=== PATIENT | male | born 1960 | race Caucasian/White ===

== ENCOUNTER 2019-04-06 09:33 | Emergency (ER) | payer OTHER ==
--- OUTSIDE RECORDS SUMMARY | 2019-04-06 09:36 | XMS REPORT ---
:1960 [facility] Address [address] [place] [address] Dr. López [address] [place] [id number] Care Team Providers Name Role Phone Unavailable Unavailable Unavailable Problems This patient has no known problems. Allergies, Adverse Reactions, Alerts This patient has no known allergies or adverse reactions. Medications This patient has no known medications.
[2019-04-06 10:15] LABS: Absolute Lymphocytes (CBC) 92.5 K/uL (0.7-4.9); Basophils % 0.5 % (0-1.3); Hematocrit 37.9 % (39.6-49.0); Lymphocytes % 94.7 % (15.3-44.8); MPV 8.8 fL (7.6-11.3); RBC Red Blood Cell Count 4.34 M/uL (4.33-5.43)
[2019-04-06 10:46] LABS: Albumin 3.9 g/dL (3.4-5.0); Potassium 4.6 mmol/L (3.5-5.1); Protein, Total 6.3 g/dL (6.4-8.2)
--- NOTE | 2019-04-06 11:25 | EDPHYS ---
Physician Documentation [facility] Name: Greg Canchola Age: 58 yrs Sex: Male : 1960 Arrival Date: 04/06/2019 Time: 09:36 Bed 8 Private MD: Meenakshi Snyder ED Physician Grover Bolanos HPI: 04/06 11:22 This 58 yrs old Male presents to ER via Ambulatory with complaints of ma2 Abnormal Lab Results. 11:22 Onset: The symptoms/episode began/occurred gradually, 1 year(s) ago. Severity of ma2 symptoms: At their worst the symptoms were very mild in the emergency department the symptoms are unchanged. The patient has not experienced similar symptoms in the past. [place] [id number], he has no symptoms, i discussed with dr. modi, oncologist, she advised for outpatient workup no need for admission . Historical: - Allergies: 10:00 Codeine; ss - PMHx: 10:00 lymphoma; Leukemia; ss - PSHx: 10:00 Neck surgery; ss - Immunization history:: Adult Immunizations up to date. - Social history:: Smoking status: Patient uses tobacco products, smokes one-half pack cigarettes per day, Patient uses alcohol, only on a social basis. reportedly used to be a heavy drinker daily. Patient/guardian denies using alcohol, street drugs, The patient lives alone. - Ebola Screening: : Patient denies exposure to infectious person Patient denies travel to an Ebola-affected area in the 21 days before illness onset. - Family history:: not pertinent. ROS: 11:22 Constitutional: Negative for fever, chills, and weight loss. ma2 11:22 All other systems are negative. Exam: 11:22 Constitutional: This is a well developed, well nourished patient who is awake, alert, ma2 and in no acute distress. Head/Face: Normocephalic, atraumatic. Neck: Trachea midline, no thyromegaly or masses palpated, and no cervical lymphadenopathy. Supple, full range of motion without nuchal rigidity, or vertebral point tenderness. No Meningismus. Chest/axilla: Normal chest wall appearance and motion. Nontender with no deformity. No lesions are appreciated. Cardiovascular: Regular rate and rhythm with a normal S1 and S2. No gallops, murmurs, or rubs. Normal PMI, no JVD. No pulse deficits. Respiratory: Lungs have equal breath sounds bilaterally, clear to auscultation and percussion. No rales, rhonchi or wheezes noted. No increased work of breathing, no retractions or nasal flaring. Abdomen/GI: Soft, non-tender, with normal bowel sounds. No distension or tympany. No guarding or rebound. No evidence of tenderness throughout. Back: No spinal tenderness. No costovertebral tenderness. Full range of motion. Skin: Warm, dry with normal turgor. Normal color with no rashes, no lesions, and no evidence of cellulitis. MS/ Extremity: Pulses equal, no cyanosis. Neurovascular intact. Full, normal range of motion. Neuro: Awake and alert, GCS 15, oriented to person, place, time, and situation. Cranial nerves II-XII grossly intact. Motor strength 5/5 in all extremities. Sensory grossly intact. Cerebellar exam normal. Normal gait. Vital Signs: 09:57 BP 169 / 87; Pulse 73; Resp 18; Temp 97.5(O); Pulse Ox 100% on R/A; Weight 78.02 kg; ss Height 6 ft. 2 in. (187.96 cm); Pain 4/10; 10:13 BP 138 / 84; Pulse 67; Resp 16 S; Pulse Ox 97% on R/A; jl7 09:57 Body Mass Index 22.08 (78.02 kg, 187.96 cm) ss MDM: 09:46 Patient medically screened. ma2 11:22 Differential Diagnosis CLL, lymphoma, LCL. Data reviewed: vital signs, nurses notes. ma2 Counseling: I had a detailed discussion with the patient and/or guardian regarding: the historical points, exam findings, and any diagnostic results supporting the discharge/admit diagnosis, the presence of at least one elevated blood pressure reading (>120/80) during this emergency department visit. Counseling: I had a detailed discussion with the patient and/or guardian regarding: the need for outpatient follow up. 04/06 09:57 Order name: CBC with Diff ma2 04/06 09:57 Order name: BMP ma2 04/06 09:57 Order name: CMP ma2 04/06 10:30 Order name: CBC with Automated Diff EDMS 04/06 10:47 Order name: Comprehensive Metabolic Panel; Complete Time: 11:02 EDMS Administered Medications: No medications were administered Disposition: 04/06/19 11:25 Discharged to Home. Impression: Chronic lymphocytic leukemia of B-cell type. - Condition is Stable. - Medication Reconciliation Form, Thank You Letter, Antibiotic Education, Prescription Opioid Use form. - Follow up: Rosalee Padgett MD; When: Tomorrow; Reason: Continuance of care. Signatures: Dispatcher [employer] EDID Karla Crodon RN RN ss Lucita Sierra RN RN jl7 Grover Bolanos MD MD ma2 Corrections: (The following items were deleted from the chart) 11:45 11:25 04/06/2019 11:25 Discharged to Home. Impression: Chronic lymphocytic leukemia of jl7 B-cell type. Condition is Stable. Forms are Medication Reconciliation Form, Thank You Letter, Antibiotic Education, Prescription Opioid Use. Follow up: Rosalee Nash; When: Tomorrow; Reason: Continuance of care. ma2
--- NOTE | 2019-04-06 11:25 | ER ---
Nurse's Notes [facility] Name: Greg Canchola Age: 58 yrs Sex: Male : 1960 Arrival Date: 04/06/2019 Time: 09:36 Bed 8 Private MD: Meenakshi Snyder Diagnosis: Chronic lymphocytic leukemia of B-cell type Presentation: 04/06 10:00 Presenting complaint: Patient states: Sent over for high WBC count. Had labs drawn ss Saturday, and was told to come to ER immediately today because his WBC count was 9. Pt reports he had labs drawn to try to become an established patient of Dr. Loco. Transition of care: patient was not received from another setting of care. Onset of symptoms is unknown. Risk Assessment: Do you want to hurt yourself or someone else? Patient reports no desire to harm self or others. Initial Sepsis Screen: Does the patient meet any 2 criteria? No. Patient's initial sepsis screen is negative. Does the patient have a suspected source of infection? No. Patient's initial sepsis screen is negative. Care prior to arrival: None. 10:00 Method Of Arrival: Ambulatory ss 10:00 Acuity: YAKOV 3 ss Historical: - Allergies: 10:00 Codeine; ss - PMHx: 10:00 lymphoma; Leukemia; ss - PSHx: 10:00 Neck surgery; ss - Immunization history:: Adult Immunizations up to date. - Social history:: Smoking status: Patient uses tobacco products, smokes one-half pack cigarettes per day, Patient uses alcohol, only on a social basis. reportedly used to be a heavy drinker daily. Patient/guardian denies using alcohol, street drugs, The patient lives alone. - Ebola Screening: : Patient denies exposure to infectious person Patient denies travel to an Ebola-affected area in the 21 days before illness onset. - Family history:: not pertinent. Screenin:13 Abuse screen: Denies threats or abuse. Denies injuries from another. Nutritional jl7 screening: No deficits noted. Tuberculosis screening: No symptoms or risk factors identified. Fall Risk IV access (20 points). Total Sinclair Fall Scale indicates No Risk (0-24 pts). Assessment: 09:55 General: Appears in no apparent distress. uncomfortable, Behavior is calm, cooperative, jl7 appropriate for age. Pain: Complains of pain in abdomen diffusely Pain currently is 6 out of 10 on a pain scale. Neuro: Level of Consciousness is awake, alert, obeys commands, Oriented to person, place, time, situation. Cardiovascular: Patient's skin is warm and dry. Respiratory: Airway is patent Respiratory effort is even, unlabored. GI: Abdomen is round Abdomen is tender to palpation. Derm: Skin is pink, warm \T\ dry. 10:01 Reassessment: Attempted to call office of Beverley Snyder NP to obtain copy of lab ss results. Left VM. Will try to call back in a few moments. 10:20 Reassessment: Spoke with office staff at [facility] office who states she will have ss the nurse call MISAEL. Vital Signs: 09:57 BP 169 / 87; Pulse 73; Resp 18; Temp 97.5(O); Pulse Ox 100% on R/A; Weight 78.02 kg; ss Height 6 ft. 2 in. (187.96 cm); Pain 4/10; 10:13 BP 138 / 84; Pulse 67; Resp 16 S; Pulse Ox 97% on R/A; jl7 09:57 Body Mass Index 22.08 (78.02 kg, 187.96 cm) ED Course: 09:36 Patient arrived in ED. mr 09:38 Meenakshi Snyder is Private Physician. mr 09:44 Lucita Sierra, RN is Primary Nurse. jl7 09:46 Grover Bolanos MD is Attending Physician. ma2 09:57 Arm band placed on right wrist. ss 10:01 Triage completed. ss 10:13 Patient has correct armband on for positive identification. Bed in low position. Call jl7 light in reach. Side rails up X 1. Pulse ox on. NIBP on. 10:13 Initial lab(s) drawn, by me, sent to lab. Inserted saline lock: 22 gauge in right jl7 forearm, using aseptic technique. Blood collected. 10:24 CMP Sent. jl7 10:24 BMP Sent. jl7 10:24 CBC with Diff Sent. jl7 11:24 Rosalee Padgett MD is Referral Physician. ma2 11:44 No provider procedures requiring assistance completed. IV discontinued, intact, jl7 bleeding controlled, No redness/swelling at site. Pressure dressing applied. Administered Medications: No medications were administered Outcome: : Discharge ordered by . javon :45 Discharged to home ambulatory. [email or web address] :45 Condition: stable :45 Discharge instructions given to patient, Instructed on discharge instructions, follow up and referral plans. Demonstrated understanding of instructions, follow-up care. :45 Patient left the ED. [email or web address] Signatures: Lisa Sepulveda mr Karla Cordon RN RN Lucita Sierra RN RN jl7 Grover Bolanos MD MD ma2
[2019-04-06 11:56] VITALS: TEMP 97.5
[2019-04-06 11:58] VITALS: BP 138/84; O2SAT 97
[2019-04-06 12:25] LABS: Blood Morphology Comment NOT SEEN (NOT SEEN); Platelet Estimate DECR
== END 2019-04-06 11:45 | disposition home or self-care (01) ==
LOC: ER 09:33
DX: C91.10 Chronic lymphocytic leukemia of B-cell type not having achieved remission (principal); F17.210 Nicotine dependence, cigarettes, uncomplicated; Z88.5 Allergy status to narcotic agent
CPT/HCPCS: 36415; 80053; 85025; 99283

== ENCOUNTER 2019-06-12 07:59 | Day surgery (SDC) | payer OTHER ==
--- OUTSIDE RECORDS SUMMARY | 2019-06-12 08:12 | XMS REPORT ---
:1960 Author Organization [employer] Care Team Providers Name Role Phone Meenakshi Snyder Provider Role Unavailable Allergies, Adverse Reactions, Alerts Substance Reaction Event Type N.K.D.A. Info Not Available Non Drug Allergy Problems Problem Type Condition Code Onset Dates Condition Status Assessment Essential hypertension I10 Active Assessment Pulmonary emphysema, unspecified J43.9 Active emphysema type Problem Pulmonary emphysema, unspecified J43.9 Active emphysema type Problem Generalized abdominal pain R10.84 Active Problem Essential hypertension I10 Active Assessment Generalized abdominal pain R10.84 Active Assessment Leukemia, chronic lymphocytic C91.10 Active Problem Leukemia, chronic lymphocytic C91.10 Active Medications Medication Code System Code Instructions Start End Date Status Dosage Date ProAir HFA [facility] 12147077886 108 (90 Base) Apr 01, Active 2 puffs as MCG/ACT 2019 needed Inhalation every 6 hrs Lisinopril [facility] [id number] 10 MG Orally Once Apr 01, Active 1 tablet a day 2019 Results No Known Results Summary Purpose [employer] Submission
--- OUTSIDE RECORDS SUMMARY | 2019-06-12 08:12 | XMS REPORT ---
:1960 Author Organization [employer] Care Team Providers Name Role Phone Meenakshi Snyder Provider Role Unavailable Allergies No Known Allergies Problems Problem Type Condition Code Onset Dates Condition Status Problem Pulmonary emphysema, unspecified J43.9 Active emphysema type Problem Generalized abdominal pain R10.84 Active Problem Essential hypertension I10 Active Problem Leukemia, chronic lymphocytic C91.10 Active Medications No Known Medications Results No Known Results Summary Purpose [place] Submission
--- OUTSIDE RECORDS SUMMARY | 2019-06-12 08:12 | XMS REPORT ---
[...] Medications Results No Known Results Summary Purpose [place] Submission
--- OUTSIDE RECORDS SUMMARY | 2019-06-12 08:12 | XMS REPORT ---
:1960 [facility] Address [address] [place] [address] Dr. López [address] [place] [id number] Care Team Providers Name Role Phone Unavailable Unavailable Unavailable Problems This patient has no known problems. Allergies, Adverse Reactions, Alerts This patient has no known allergies or adverse reactions. Medications This patient has no known medications.
[2019-06-12] MEDS ORDERED: NA CHLORIDE 0.9% 250 ML ONE ×2 (08:19→08:21)
[2019-06-12] MEDS ORDERED: NA CHLORIDE 0.9% 500 ML ONE (10:46)
[2019-06-12 14:26] VITALS: BP 137/68; TEMP 98.4; O2SAT 100; BMI 20.9
[2019-06-12 15:25] LABS: Hematocrit 25.3 % (39.6-49.0)
== END 2019-06-12 15:22 | disposition home or self-care (01) ==
LOC: DS 07:59
PROVIDERS: ATTEND Internal Medicine Hematology & Oncology
DX: D63.0 Anemia in neoplastic disease (principal); C83.08 Small cell B-cell lymphoma, lymph nodes of multiple sites
CPT/HCPCS: 36415; 86900; 86850; 86901; 85018; 85014; 36430; P9016 ×2; J7030 ×2; J7040

== ENCOUNTER 2021-02-07 13:52 | Inpatient (IN) | payer BC, OTHER ==
[2021-02-07] MEDS ORDERED: HYDROMORPHONE HCL 1 MG/ML INJ ONE ×3 (15:07→23:31)
[2021-02-07] MEDS ORDERED: NA CHLORIDE 0.9% 1,000 ML ONE ×2 (15:07→19:41)
[2021-02-07] MEDS ORDERED: PROMETHAZINE INJ 25 MG/ML AMP ONE (15:07)
[2021-02-07 15:11] LABS: Basophils % 0.8 % (0-1.3); Hematocrit 44.3 % (39.6-49.0); Lymphocytes % 88.6 % (15.3-44.8); RBC Red Blood Cell Count 5.25 M/uL (4.33-5.43)
[2021-02-07 15:32] LABS: Albumin 4.5 g/dL (3.4-5.0); Bilirubin Direct 0.3 mg/dL (0-0.2); Bilirubin Total 1.1 mg/dL (0.2-1.0); Protein, Total 7.3 g/dL (6.4-8.2)
[2021-02-07 15:36] LABS: Potassium 6.8 mmol/L (3.5-5.1)
[2021-02-07 16:04] LABS: Blood Morphology Comment NOT SEEN (NOT SEEN); Platelet Estimate ADEQ; Smudge Cells 4+
--- NOTE | 2021-02-07 16:35 | RAD REPORT ---
EXAM DESCRIPTION: CT - Abdomen Pelvis W Contrast - 02/07/2021 4:03 pm CLINICAL HISTORY: Abdominal pain COMPARISON: 2019 TECHNIQUE: Computed axial tomography of the abdomen pelvis was obtained. 100 cc Isovue-300 was admin istered intravenously. All CT scans are performed using dose optimization technique as appropriate and may include automated exposure control or mA/KV adjustment according to patient size. FINDINGS: Multiple hepatic lesions. Many have developed since the prior exam. Some have enlarged. Eliseo th lobes are involved. Largest lesion lies within the posterior segment right lower lobe 3.7 centimet ers. Spleen measures 19 centimeters. 2.4 centimeter low to intermediate density lesion unchanged. Pancreas, adrenals and kidneys unremarkable. 4.3 centimeter upper rectal mass. The entire proximal colon is dilated. Transverse colon measures 6.7 centimeters. The right colon measures 7.3 centimeters. There is massive abdominal lymphadenopathy. Retrocrural lymph node measures 2.5 centimeters. Mantle o f lymph nodes within the central upper abdomen measures 12 x 8 centimeters. Mantle lymph nodes within the mid central abdomen measures 18 x 10 centimeters. Mantle of lymph nodes within the lower central abdomen measure 11 x 7 centimeters. Several enlarged lymph nodes along the iliac chains bilaterally. Largest measures 3.6 centimeters. Several perirectal lymph nodes. Stomach and duodenum are compresse d by the lymphadenopathy. IMPRESSION: 4.3 centimeter rectal mass results in a colonic obstruction Multiple hepatic lesions likely metastases Massive abdominal lymphadenopathy. Several enlarged lymph nodes within the pelvis
--- NOTE | 2021-02-07 17:07 | EDPHYS ---
Physician Documentation [facility] Name: Greg Canchola Age: 60 yrs Sex: Male : 1960 Arrival Date: 02/07/2021 Time: 13:54 Bed 24 Private MD: Rosalee Padgett ED Physician Grover Bolanos HPI: 02/07 14:49 This 60 yrs old Male presents to ER via Wheelchair with complaints of ma2 Abdominal Swelling, Constipation, Urinary Retention. 14:49 The patient presents with abdominal pain. Associated signs and symptoms: Pertinent ma2 negatives: blood in stools, constipation, fever, headache, vomiting, vomiting blood. Severity of pain: At its worst the pain was moderate in the emergency department the pain is unchanged. The patient has experienced similar episodes in the past. has colon cancer on comfort palliative care . Historical: - Allergies: 14:06 Codeine; vg1 - Home Meds: 14:06 None [Active]; vg1 - PMHx: 14:06 Leukemia; LYMPHOMA; vg1 - Immunization history:: Adult Immunizations up to date, Client reports having NOT received the Covid vaccine. - Social history:: Smoking status: Patient reports the use of cigarette tobacco products, smokes one-half pack cigarettes per day. - Family history:: not pertinent. ROS: 14:49 Constitutional: Negative for fever, chills, and weight loss. ma2 14:49 All other systems are negative. Exam: 14:49 Constitutional: This is a well developed, well nourished patient who is awake, alert, ma2 and in no acute distress. Head/Face: Normocephalic, atraumatic. Eyes: Pupils equal round and reactive to light, extra-ocular motions intact. Lids and lashes normal. Conjunctiva and sclera are non-icteric and not injected. Cornea within normal limits. Periorbital areas with no swelling, redness, or edema. ENT: Nares patent. No nasal discharge, no septal abnormalities noted. Tympanic membranes are normal and external auditory canals are clear. Oropharynx with no redness, swelling, or masses, exudates, or evidence of obstruction, uvula midline. Mucous membranes moist. Neck: Trachea midline, no thyromegaly or masses palpated, and no cervical lymphadenopathy. Supple, full range of motion without nuchal rigidity, or vertebral point tenderness. No Meningismus. Chest/axilla: Normal chest wall appearance and motion. Nontender with no deformity. No lesions are appreciated. Cardiovascular: Regular rate and rhythm with a normal S1 and S2. No gallops, murmurs, or rubs. Normal PMI, no JVD. No pulse deficits. Respiratory: Lungs have equal breath sounds bilaterally, clear to auscultation and percussion. No rales, rhonchi or wheezes noted. No increased work of breathing, no retractions or nasal flaring. Skin: Warm, dry with normal turgor. Normal color with no rashes, no lesions, and no evidence of cellulitis. MS/ Extremity: Pulses equal, no cyanosis. Neurovascular intact. Full, normal range of motion. Neuro: Awake and alert, GCS 15, oriented to person, place, time, and situation. Cranial nerves II-XII grossly intact. Motor strength 5/5 in all extremities. Sensory grossly intact. Cerebellar exam normal. Normal gait. 14:49 Abdomen/GI: Inspection: distension, Bowel sounds: high pitched, Palpation: nontender, Liver: is enlarged, Hernia: not appreciated. Vital Signs: 14:03 BP 152 / 103; Pulse 98; Resp 20; Temp 97.8; Pulse Ox 96% ; Weight 61.23 kg; Height 6 vg1 ft. 0 in. (182.88 cm); Pain 10/10; 14:28 BP 158 / 106; Pulse 97; Resp 18; Pulse Ox 100% on R/A; Pain 10/10; ld1 19:20 BP 151 / 81; Pulse 87; Resp 18; Temp 98.0; Pulse Ox 100% ; Pain 0/10; dc2 20:30 BP 166 / 89; Pulse 79; Resp 18; Temp 98.0; Pulse Ox 100% ; Pain 0/10; dc2 21:30 BP 146 / 96; Pulse 84; Resp 18; Pulse Ox 100% ; Pain 2/10; dc2 22:00 BP 173 / 91; Pulse 85; Resp 18; Pulse Ox 99% ; Pain 2/10; dc2 23:00 BP 168 / 100; Pulse 85; Resp 20; Pulse Ox 100% ; Pain 10/10; dc2 10 00:00 BP 167 / 104; Pulse 85; Resp 20; Temp 97.2; Pulse Ox 99% ; Pain 8/10; dc2 02/07 14:03 Body Mass Index 18.31 (61.23 kg, 182.88 cm) vg1 MDM: 02/07 14:33 Patient medically screened. sc2 14:49 Differential diagnosis: gastritis, gastroesophageal reflux disease, pancreatitis, ma2 urinary tract infection. 17:05 Data reviewed: vital signs, nurses notes. Counseling: I had a detailed discussion with ma2 the patient and/or guardian regarding: the historical points, exam findings, and any diagnostic results supporting the discharge/admit diagnosis, the presence of at least one elevated blood pressure reading (>120/80) during this emergency department visit, the need for outpatient follow up. Response to treatment: the patient's symptoms have markedly improved after treatment. ED course: patient has terminal colon cancer, lymphoma with wbc of 100K, he also havs hyperkalemia and severe dehydraiton, he would like to be admitted for hydration and potassium correction . 02/07 14:27 Order name: Basic Metabolic Panel; Complete Time: 15:41 [facility] 02/07 14:27 Order name: CBC with Diff; Complete Time: 16:34 [facility] 02/07 14:27 Order name: Hepatic Function; Complete Time: 15:41 [facility] 02/07 14:27 Order name: Lipase; Complete Time: 15:41 [facility] 02/07 16:04 Order name: Manual Differential; Complete Time: 16:34 [facility] 02/07 19:05 Order name: Potassium ej 02/07 14:35 Order name: CT Abd/Pelvis - IV Contrast Only [facility] 02/07 19:18 Order name: Urine Dipstick-Ancillary [facility] 02/07 19:27 Order name: COVID-19 (Coronavirus) Document "Date of Onset" if Symptomatic tt3 02/07 19:28 Order name: CORONAVIRUS [facility] 02/07 23:12 Order name: SARS-COV-2 RT PCR [facility] 02/07 14:27 Order name: IV Saline Lock; Complete Time: 15:02 [facility] 02/07 14:27 Order name: Labs collected and sent; Complete Time: 15:02 [facility] 02/07 14:35 Order name: Urine Dipstick-Ancillary (obtain specimen); Complete Time: 19:19 [facility] 02/07 20:28 Order name: CONS Physician Consult EDMS Administered Medications: 15:02 Drug: Dilaudid (HYDROmorphone) 1 mg Route: IVP; Site: left upper arm; ld1 15:02 Follow up: Response: No adverse reaction ld1 15:02 Drug: Phenergan (promethazine) 25 mg Route: IVP; Site: left upper arm; ld1 15:02 Follow up: Response: No adverse reaction ld1 15:02 Drug: NS 0.9% 1000 ml Route: IV; Rate: 1 bolus; Site: left upper arm; ld1 17:55 Follow up: Response: No adverse reaction; IV Status: Completed infusion; IV Intake: ld1 1000ml 16:59 Drug: Insulin Regular Human 5 units {Co-Signature: ap3 (Dominique Weeks RN).} Route: ld1 IVP; Site: left antecubital; 17:54 Follow up: Response: No adverse reaction ld1 17:07 Drug: Albuterol 1.25 mg Route: Inhalation; ld1 17:08 Drug: D50W 50 ml Route: IVP; Site: left upper arm; ld1 17:54 Follow up: Response: No adverse reaction ld1 17:08 Drug: Calcium Gluconate 1 grams Route: IVPB; Infused Over: 60 mins; Site: left upper ld1 arm; 17:55 Follow up: Response: No adverse reaction; IV Status: Completed infusion; IV Intake: ld1 100ml 19:19 Drug: NS 0.9% 1000 ml Route: IV; Rate: 100 ml/hr; Site: left upper arm; ld1 10 00:02 Follow up: IV Status: Infusion continued upon admission; IV Intake: 500ml dc2 02/07 23:06 Drug: Dilaudid (HYDROmorphone) 1 mg Route: IVP; Site: left upper arm; dc2 02/08 00:01 Follow up: Response: Pain is decreased dc2 Disposition Summary: 02/07/21 17:06 Hospitalization Ordered Hospitalization Status: Inpatient Admission ma2 Provider: Edson Last Location: Telemetry/MedSurg (Inpatient) ma2 Condition: Stable ma2 Problem: new ma2 Symptoms: are unchanged ma2 Bed/Room Type: Standard [facility] Room Assignment: 209(02/07/21 23:48) eb1 Diagnosis - Hyperkalemia - colon cancer, lymphoma, leukemia (02/07/21 17:07) ma2 Forms: - Medication Reconciliation Form ma2 - SBAR form sc2 Critical care time excluding procedures: 02/07 18:08 Critical care time: Bedside Care: 30 minutes, Consultation: 20 minutes, Family ma2 Intervention: 5 minutes. Total time: 55 minutes Signatures: Dispatcher [employer] EDSteven Ochoa PA PA jmm Alzahri, Mohammad, MD MD ma2 Debra Sellers RN RN eb1 Lea Veliz RN RN digna1 Walker Brock PA PA ej Dibbern, Lauren RN RN ld1 Susan Manzano RN RN dc2 Dominique Weeks RN ap3 Corrections: (The following items were deleted from the chart) 17:07 17:06 Hyperkalemia sc2 ma2 23:48 17:06 sc2 eb1
--- NOTE | 2021-02-07 17:07 | ER ---
Nurse's Notes [facility] Name: Greg Canchola Age: 60 yrs Sex: Male : 1960 Arrival Date: 02/07/2021 Time: 13:54 Bed 24 Private MD: Rosalee Padgett Diagnosis: Hyperkalemia-colon cancer, lymphoma, leukemia Presentation: 02/07 14:03 Chief complaint: Patient states: ABD pain began Saturday02/04/21 as well as urinary vg1 retention, states not having a 'full flow' when go to urinate. States constipation began same day as well. States NV. Also stated has a '10 cm rectal tumor' and has not had chemo since May 2019. Coronavirus screen: Vaccine status: Patient reports being unvaccinated. Client denies travel out of the [place] in the last 14 days. Ebola Screen: Patient negative for fever greater than or equal to 101.5 degrees Fahrenheit, and additional compatible Ebola Virus Disease symptoms. Initial Sepsis Screen: Does the patient meet any 2 criteria? No. Patient's initial sepsis screen is negative. Does the patient have a suspected source of infection? No. Patient's initial sepsis screen is negative. Risk Assessment: Do you want to hurt yourself or someone else? Patient reports no desire to harm self or others. Onset of symptoms was February 04, 2021. 14:03 Method Of Arrival: Wheelchair vg1 14:03 Acuity: YAKOV 3 vg1 Triage Assessment: 14:06 General: Appears in no apparent distress. uncomfortable, Behavior is calm, cooperative. vg1 Pain: Complains of pain in abdomen. GI: Abdomen is round distended, Abdomen is tender to palpation X 4 quads. Historical: - Allergies: 14:06 Codeine; vg1 - Home Meds: 14:06 None [Active]; vg1 - PMHx: 14:06 Leukemia; LYMPHOMA; vg1 - Immunization history:: Adult Immunizations up to date, Client reports having NOT received the Covid vaccine. - Social history:: Smoking status: Patient reports the use of cigarette tobacco products, smokes one-half pack cigarettes per day. - Family history:: not pertinent. Screenin:28 Abuse screen: Denies threats or abuse. Denies injuries from another. Nutritional ld1 screening: No deficits noted. Tuberculosis screening: No symptoms or risk factors identified. Fall Risk None identified. Assessment: 14:28 General: Appears in no apparent distress. uncomfortable, Behavior is calm, cooperative, ld1 appropriate for age. Pain: Complains of pain in abdomen Pain does not radiate. Pain currently is 10 out of 10 on a pain scale. Quality of pain is described as heavy, pressure, throbbing, Pain began 2-3 days ago. Is continuous. Neuro: Level of Consciousness is awake, alert, obeys commands, Oriented to person, place, time, situation. Cardiovascular: Capillary refill < 3 seconds Patient's skin is warm and dry. Respiratory: Airway is patent Respiratory effort is even, unlabored, Respiratory pattern is regular, symmetrical, Breath sounds with crackles bilaterally. GI: Abdomen is round distended, Bowel sounds present X 4 quads. Reports lower abdominal pain, upper abdominal pain, bloating, constipation, intolerance of fluids, intolerance of food, nausea, vomiting. GI: : Reports inability to void. EENT: No signs and/or symptoms were reported regarding the EENT system. Derm: No signs and/or symptoms reported regarding the dermatologic system. Musculoskeletal: No signs and/or symptoms reported regarding the musculoskeletal system. 19:33 Reassessment: Walker at bedside, would like a stat BMP. dc2 22:55 Reassessment: Pt changed into gown and moved up in bed with max assist. Pt complain of dc2 abdominal pain , PRS 12/10 . 23:55 Reassessment: Attempt to call report, Tg states that Leonora is setting up the dc2 room . Will call back for report. Patient states symptoms have improved. Vital Signs: 14:03 BP 152 / 103; Pulse 98; Resp 20; Temp 97.8; Pulse Ox 96% ; Weight 61.23 kg; Height 6 vg1 ft. 0 in. (182.88 cm); Pain 10/10; 14:28 BP 158 / 106; Pulse 97; Resp 18; Pulse Ox 100% on R/A; Pain 10/10; ld1 19:20 BP 151 / 81; Pulse 87; Resp 18; Temp 98.0; Pulse Ox 100% ; Pain 0/10; dc2 20:30 BP 166 / 89; Pulse 79; Resp 18; Temp 98.0; Pulse Ox 100% ; Pain 0/10; dc2 21:30 BP 146 / 96; Pulse 84; Resp 18; Pulse Ox 100% ; Pain 2/10; dc2 22:00 BP 173 / 91; Pulse 85; Resp 18; Pulse Ox 99% ; Pain 2/10; dc2 23:00 BP 168 / 100; Pulse 85; Resp 20; Pulse Ox 100% ; Pain 10/10; dc2 02/08 00:00 BP 167 / 104; Pulse 85; Resp 20; Temp 97.2; Pulse Ox 99% ; Pain 8/10; dc2 02/07 14:03 Body Mass Index 18.31 (61.23 kg, 182.88 cm) vg1 ED Course: 02/07 13:54 Patient arrived in ED. as 13:55 Rosalee Padgett MD is Private Physician. as 14:06 Triage completed. vg1 14:06 Arm band placed on. vg1 14:11 Emy Platt, KIMBERLY is Primary Nurse. ld1 14:28 Patient has correct armband on for positive identification. Placed in gown. Bed in low ld1 position. Call light in reach. Side rails up X2. production corrugator on. Pulse ox on. NIBP on. Door closed. Noise minimized. Warm blanket given. 14:28 No provider procedures requiring assistance completed. Missed attempt(s): 20 gauge in ld1 right antecubital area. 14:33 Grover Bolanos MD is Attending Physician. ma2 16:03 CT Abd/Pelvis - IV Contrast Only In Process Unspecified. EDMS 17:06 Grover Abdi MD is Hospitalizing Provider. ma2 17:06 Edson Last DO is Hospitalizing Provider. ma2 19:30 Inserted saline lock: 22 gauge in left upper arm, using aseptic technique. dc2 19:40 Admitting physician to see patient. dc2 20:30 No apparent distress. Resting quietly. Awaiting disposition. dc2 20:30 Side rails up X 1. Door closed. Lights dimmed. dc2 20:30 Patient has correct armband on for positive identification. Bed in low position. Call dc2 light in reach. Side rails up X2. production corrugator on. Pulse ox on. NIBP on. Door closed. Lights dimmed. 21:30 No apparent distress. Resting quietly. dc2 21:35 Bed in low position. Call light in reach. Side rails up X2. production corrugator on. Pulse dc2 ox on. NIBP on. 21:49 COVID-19 (Coronavirus) Document "Date of Onset" if Symptomatic Sent. dc2 21:49 CORONAVIRUS Sent. dc2 22:30 No apparent distress. Resting quietly. Awaiting bed assignment. dc2 22:41 IV discontinued, intact, bleeding controlled, No redness/swelling at site. Pressure dc2 dressing applied. Administered Medications: 15:02 Drug: Dilaudid (HYDROmorphone) 1 mg Route: IVP; Site: left upper arm; ld1 15:02 Follow up: Response: No adverse reaction ld1 15:02 Drug: Phenergan (promethazine) 25 mg Route: IVP; Site: left upper arm; ld1 15:02 Follow up: Response: No adverse reaction ld1 15:02 Drug: NS 0.9% 1000 ml Route: IV; Rate: 1 bolus; Site: left upper arm; ld1 17:55 Follow up: Response: No adverse reaction; IV Status: Completed infusion; IV Intake: ld1 1000ml 16:59 Drug: Insulin Regular Human 5 units {Co-Signature: ap3 (Dominique Weeks RN).} Route: ld1 IVP; Site: left antecubital; 17:54 Follow up: Response: No adverse reaction ld1 17:07 Drug: Albuterol 1.25 mg Route: Inhalation; ld1 17:08 Drug: D50W 50 ml Route: IVP; Site: left upper arm; ld1 17:54 Follow up: Response: No adverse reaction ld1 17:08 Drug: Calcium Gluconate 1 grams Route: IVPB; Infused Over: 60 mins; Site: left upper ld1 arm; 17:55 Follow up: Response: No adverse reaction; IV Status: Completed infusion; IV Intake: ld1 100ml 19:19 Drug: NS 0.9% 1000 ml Route: IV; Rate: 100 ml/hr; Site: left upper arm; ld1 02/08 00:02 Follow up: IV Status: Infusion continued upon admission; IV Intake: 500ml dc2 02/07 23:06 Drug: Dilaudid (HYDROmorphone) 1 mg Route: IVP; Site: left upper arm; dc2 02/08 00:01 Follow up: Response: Pain is decreased dc2 Intake: 02/07 17:55 IV: 100ml; Total: 100ml. ld1 17:55 IV: 1000ml; Total: 1100ml. ld1 02/08 00:02 IV: 500ml; Total: 1600ml. dc2 Outcome: 02/07 17:06 Decision to Hospitalize by Provider. ma2 02/08 00:12 Admitted to Tele Report called to KIMBERLY Lea dc2 Admitted to Tele accompanied by nurse, via stretcher, Report called to KIMBERLY Lea 00:14 Condition: stable dc2 00:28 Patient left the ED. dc2 Signatures: Dispatcher [employer] EDMS Tami Watson Mohammad, MD MD ma2 Lea Veliz RN RN vg1 Emy Platt RN RN ld1 Susan Manzano RN RN dc2 Dominique Weeks RN ap3 Corrections: (The following items were deleted from the chart) 02/07 20:10 19:30 Vale cath inserted, using sterile technique, 16 Fr., by ED staff, Patient dc2 tolerated well. dc2 23:10 20:30 No apparent distress. Resting quietly. dc2 dc2 23:14 22:40 Discharged to home ambulatory, dc2 dc2 23:14 22:40 Condition: stable dc2 dc2 23:14 22:40 Discharge instructions given to patient, Instructed on discharge instructions, dc2 follow up and referral plans. Demonstrated understanding of instructions, dc2 02/08 00:14 00:06 Admitted to Tele accompanied by nurse, via stretcher, room 209, dc2 dc2 00:14 00:06 Condition: stable dc2 dc2 00:14 00:06 Instructed on the need for admit, Demonstrated understanding of dc2 dc2
[2021-02-07] MEDS ORDERED: CALCIUM GLUCONATE 1 GM IVPB 1 GM/50 ML BAG IV ONE (17:19)
[2021-02-07] MEDS ORDERED: ALBUTEROL INHALER 60 PUFF/8 GM IH ONE (17:19)
[2021-02-07] MEDS ORDERED: INSULIN -REGULAR HUMAN 50 UNIT/0.5 ML ML ONE (17:19)
[2021-02-07] MEDS ORDERED: D50W 25 GM/50 ML SYRINGE IV ONE (17:20)
[2021-02-07 19:19] LABS: Urine Blood 1+ (Negative); Urine Glucose Negative (Negative); Urine Protein Negative (Negative); Urine Specific Gravity 1.025 (1.005-1.030); Urine pH 5.5 (5.0-7.0)
--- NOTE | 2021-02-07 21:44 | P.HP ---
Certification for Inpatient Patient admitted to: Inpatient With expected LOS: >2 Midnights Patient will require the following post-hospital care: None Practitioner: I am a practitioner with admitting privileges, knowledge of patient current condition, hospital course, and medical plan of care. Services: Services provided to patient in accordance with Admission requirements found in Title 42 Section 412.3 of the Code of Federal Regulations Patient History Date of Service: 02/07/21 Reason for admission: colonic obstruction History of Present Illness: Mr. Canchola is a 60 yo M with SLL/CLL, rectal carcinoma and COPD who presents with abdominal swelling, constipation and urinary retention that has been worsening since Saturday. He says his last BM was a few weeks ago. He was last able to hold food and liquids down 1.5 weeks ago. He has been able to urinate today but it has been difficult over the past few days. says they took a trip to [place] a week ago, and since then he has declined. Reports nausea and vomiting. Denies fever, hemoptysis, melena and hematochezia. Patient was scheduled to start radiation and chemotherapy in May, but he declined. He is scheduled to see his oncologist tomorrow. Patient has not been formally set up with hospice/palliative care. WBC 101.6, Na 127, K 4.4, cl 96, BUN 28, GFR 80. CT Abdomen Pelvis IMPRESSION: 4.3 centimeter rectal mass results in a colonic obstruction Multiple hepatic lesions likely metastases Massive abdominal lymphadenopathy. Several enlarged lymph nodes within the pelvis Allergies codeine Allergy (Verified 06/12/19 14:07) Itching Home Medications: Albuterol Sulfate [Proair Respiclick] 1 inh NEB DAILY 06/12/19 Allopurinol 1 tab PO DAILY 06/12/19 Ibrutinib [Imbruvica] 1 tab PO DAILY 06/12/19 Tramadol HCl [Ultram] 1 tab PO QID PRN 06/12/19 Valacyclovir HCl [Valtrex] 1 tab PO DAILY 06/12/19 - Past Medical/Surgical History -: SLL/CLL -: rectal carcinoma -: COPD -: neck surgery - Family History Family History: Reviewed- Non-Contributory - Social History Smoking Status: Current every day smoker Alcohol use: No CD- Drugs: No Caffeine use: No Place of Residence: Home Review of Systems 10-point ROS is otherwise unremarkable General: Weakness, Malaise, As per HPI Eyes: Unremarkable ENT: Unremarkable Respiratory: Unremarkable Cardiovascular: Unremarkable Gastrointestinal: Nausea, Vomiting, Abdominal Pain, Distention, Constipation, As per HPI Genitourinary: Retention, As per HPI Musculoskeletal: Unremarkable Integumentary: Unremarkable Neurological: Unremarkable Lymphatics: Unremarkable Physical Examination - Physical Exam General: Alert, In no apparent distress, Cachectic HEENT: Atraumatic, PERRLA, Mucous membr. moist/pink, EOMI, Sclerae nonicteric Neck: Supple, 2+ carotid pulse no bruit, No LAD, Without JVD or thyroid abnormality Respiratory: Normal air movement, Expiratory wheezes Cardiovascular: Regular rate/rhythm, Normal S1 S2 Gastrointestinal: Normal bowel sounds, No ascites, No masses, No rebound, No guarding, Distended, Tenderness Musculoskeletal: No tenderness Integumentary: No rashes Neurological: Normal speech, Normal strength at 5/5 x4 extr, Normal tone, Normal affect Lymphatics: No axilla or inguinal lymphadenopathy - Studies Laboratory Data (last 24 hrs) 02/07/21 19:05: Potassium 4.4 02/07/21 14:55: WBC 101.60 H*, Hgb 14.5, Hct 44.3, Plt Count 286 02/07/21 14:55: Sodium 127 L, Potassium 6.8 H*, BUN 28 H, Creatinine 0.96, Glucose 93, Total Bilirubin 1.1 H, AST 26, ALT 14, Alkaline Phosphatase 92, Lipase 106 Assessment and Plan - Problems (Diagnosis) (1) CLL (chronic lymphocytic leukemia) Current Visit: Yes Status: Chronic (2) Rectal cancer Current Visit: Yes Status: Chronic (3) COPD (chronic obstructive pulmonary disease) Current Visit: Yes Status: Chronic Qualifiers: COPD type: unspecified COPD Qualified Code(s): J44.9 - Chronic obstructive pulmonary disease, unspecified (4) Colonic obstruction Current Visit: Yes Status: Acute (5) Dehydration Current Visit: Yes Status: Acute - Plan patient expressed that he is not open to chemotherapy or radiation, but would be open to surgery if it would improve his symptoms now. discussed with oncology that now that cancer is metastic, palliative measures are the only option including colostomy and palliative chemo. will discuss plan of care tomorrow with family, oncology, and surgery. oncology consulted, surgery consulted NPO, continue IVF hydration, pain management monitor BMP for improvement in Na levels O2 as needed, breathing treatments as needed DVT ppx Discharge Plan: Half-Way Plan to discharge in: 48 Hours - Advance Directives Does patient have a Living Will: No Does patient have a Durable POA for Healthcare: No - Code Status/Comfort Care Code Status Assessed: Yes (DNR ) Critical Care: No Time Spent Managing Pts Care (In Minutes): 70
[2021-02-08] MEDS ORDERED: ACETAMINOPHEN 500 MG TAB PO PRN (00:19)
[2021-02-08] MEDS ORDERED: ALBUTEROL 2.5 MG/3 ML NEB SOL NEB PRN (00:19)
[2021-02-08] MEDS ORDERED: IPRATROPIUM BROM 0.5MG/2.5ML NEB PRN (00:19)
[2021-02-08] MEDS: NA CHLORIDE 0.9% 1,000 ML IV SCH ×3 (00:54→22:34)
[2021-02-08 01:03] VITALS: BMI 17.6
[2021-02-08] MEDS: HYDROMORPHONE HCL 0.5 MG/0.5 ML INJ IV PRN ×4 (01:08→12:23)
[2021-02-08 06:04] LABS: Absolute Lymphocytes (CBC) 47.4 K/uL (0.7-4.9); Basophils % 0.4 % (0-1.3); Hematocrit 36.8 % (39.6-49.0); Lymphocytes % 89.1 % (15.3-44.8); RBC Red Blood Cell Count 4.41 M/uL (4.33-5.43)
[2021-02-08 06:38] LABS: ALT/SGPT 13 U/L (12-78); AST/SGOT 19 U/L (15-37); Albumin 3.7 g/dL (3.4-5.0); Alkaline Phosphatase 73 U/L (45-117); BUN Blood Urea Nitrogen 24 mg/dL (7-18); Bicarbonate 21 mmol/L (21-32); Bilirubin Total 0.9 mg/dL (0.2-1.0); Glucose Level 82 mg/dL (74-106); HDL Cholesterol 21 mg/dL (40-60); LDL Cholesterol, Calculated 120 (<130); Magnesium 2.3 mg/dL (1.8-2.4); Phosphorus 3.4 mg/dL (2.5-4.9); Potassium 4.3 mmol/L (3.5-5.1); Protein, Total 5.7 g/dL (6.4-8.2); Sodium Level 131 mmol/L (136-145)
[2021-02-08] MEDS ORDERED: INFLUENZA VACCINE (for 6+ mo) 0.5 ML DOSE IMVAC ONE (08:00)
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
[2021-02-08] MEDS: ONDANSETRON 4 MG/2 ML VIAL IV PRN ×2 (11:55→20:19)
--- NOTE | 2021-02-08 15:31 | P.PN ---
Subjective Date of Service: 02/08/21 Long discussion with patient & he is agreeable to hospice care. Will go ahead and Consult case management for inpatient or outpatient hospice per patient's request. Patient does not want to have any surgery as he feels he would not do well after surgery. He says he has made peace with his disease and wants to be made comfortable at this stage of his life. Review of Systems 10-point ROS is otherwise unremarkable Physical Examination - Vital Signs Temperature: 98.4 F Blood Pressure: 172/90 Pulse: 77 Respirations: 22 Pulse Ox (%): 100 - Physical Exam General: Alert, In no apparent distress, Cachectic HEENT: Atraumatic, PERRLA, Other, EOMI Neck: Supple, JVD not distended Respiratory: Clear to auscultation bilaterally, Normal air movement Cardiovascular: Regular rate/rhythm, Normal S1 S2 Gastrointestinal: Hyperactive, Tenderness Musculoskeletal: No tenderness Integumentary: Other (Hyperpigmentation of the arms) Neurological: Normal speech, Abnormal strength, Abnormal affect Lymphatics: No axilla or inguinal lymphadenopathy - Studies Laboratory Data (last 24 hrs) 02/07/21 19:05: Potassium 4.4 02/07/21 14:55: WBC 101.60 H*, Hgb 14.5, Hct 44.3, Plt Count 286 02/07/21 14:55: Sodium 127 L, Potassium 6.8 H*, BUN 28 H, Creatinine 0.96, Glucose 93, Total Bilirubin 1.1 H, AST 26, ALT 14, Alkaline Phosphatase 92, Lipase 106 Medications List Reviewed: Yes Assessment & Plan - Problems (Diagnosis) (1) Rectal cancer metastasized to liver Current Visit: Yes Status: Acute (2) Colonic obstruction Current Visit: Yes Status: Acute (3) CLL (chronic lymphocytic leukemia) Current Visit: Yes Status: Chronic (4) Rectal cancer Current Visit: Yes Status: Chronic - Plan After a long discussion with the patient he has decided that he does not want a diverting colostomy. He does not want have any surgical procedure nor does he want chemotherapy or radiation. Patient is oriented to person place and time and he is understanding his disease process. He does not want chemotherapy because he states the burning from the inside out. He went through chemotherapy for a year. He does have bilateral hyperpigmentation of the upper extremity which is related to his chemotherapy. He just wants to be made comfortable at this point in his life and he is going to proceed with hospice care. - Advance Directives Does patient have a Living Will: No Does patient have a Durable POA for Healthcare: No
[2021-02-08] MEDS: HYDROMORPHONE HCL 1 MG/ML INJ IV PRN ×3 (16:12→23:59)
[2021-02-08] MEDS: HYDRALAZINE HCL 20 MG/ML VIAL IV PRN ×2 (16:59→22:35)
[2021-02-08] MEDS: LORazepam 2 MG/ML VIAL IV PRN (21:12)
[2021-02-09] MEDS: LORazepam 2 MG/ML VIAL IV PRN ×4 (01:05→14:01)
[2021-02-09] MEDS: HYDROMORPHONE HCL 1 MG/ML INJ IV PRN ×4 (03:03→12:28)
[2021-02-09] MEDS: ONDANSETRON 4 MG/2 ML VIAL IV PRN (03:03)
[2021-02-09] MEDS: NA CHLORIDE 0.9% 1,000 ML IV SCH (06:19)
[2021-02-09 09:07] VITALS: O2SAT 99
[2021-02-09] MEDS ORDERED: FENTANYL 50 MCG/PATCH TD SCH (10:00)
[2021-02-09] MEDS: MORPHINE SULF 10 MG/5 ML OSYR PO PRN ×2 (10:03→14:00)
[2021-02-09 12:24] VITALS: BP 167/85; TEMP 97.2
== END 2021-02-09 14:45 | disposition hospice, home (50) | DRG 389 ==
LOC: ER 13:52 → ERHOLD 20:27 → 2ND 02-08 00:13
PROVIDERS: ADMIT Hospitalist; ATTEND Hospitalist
DX: K56.609 Unspecified intestinal obstruction, unspecified as to partial versus complete obstruction (principal); C20 Malignant neoplasm of rectum; C91.10 Chronic lymphocytic leukemia of B-cell type not having achieved remission; R64 Cachexia; Z68.1 Body mass index [BMI] 19.9 or less, adult; C85.80 Other specified types of non-Hodgkin lymphoma, unspecified site; C78.7 Secondary malignant neoplasm of liver and intrahepatic bile duct; F17.210 Nicotine dependence, cigarettes, uncomplicated; E86.0 Dehydration; E87.5 Hyperkalemia; J44.9 Chronic obstructive pulmonary disease, unspecified; K59.00 Constipation, unspecified; R33.9 Retention of urine, unspecified; Z66 Do not resuscitate; Z51.5 Encounter for palliative care; Z88.5 Allergy status to narcotic agent; Z20.822 Contact with and (suspected) exposure to COVID-19
CPT/HCPCS: 36415; 74177; 80048; 80053; 80061; 80076; 81003; 83690; 83735; 84100; 84132; 84439; 84443; 85025; 94760; 99285; J0360; J0610; J1170; J2405; J2550; J7030; Q2035; Q9967; U0003